=== PATIENT | male | born 1990 ===

== ENCOUNTER 2021-10-24 09:27 | Outpatient (CLI) | payer OTHER ==
--- NOTE | 2021-10-24 14:25 | MRI Report ---
PROCEDURE: Thoracic Spine W/O INDICATIONS: THORACIC BACK PAIN TECHNIQUE: Noncontrast sagittal T1 spine echo and T2 fast spin echo, sagittal STIR, axial T1 and T2 fast spin ec ho through the thoracic spine. COMPARISON: None. FINDINGS: Image quality: Excellent. Alignment and Curvature: There is normal bony alignment. Bone Marrow: Marrow is of normal overall signal. No acute vertebral body compression fractures. Spinal Cord: Visualized spinal cord is normal in size and signal. Paraspinous Soft Tissues: No paravertebral masses. Miscellaneous: On axial images, central canal and foramina appear widely patent at all scanned level s. IMPRESSION: 1. Normal examination. 2. No central stenosis. 3. No neural foraminal narrowing. 4. No neural compression. 5. No vertebral body compression fracture. Reviewed by: Keisha Red MD, PhD on 10/24/2021 2:23 PM PDT Approved by: Keisha Red MD, PhD on 10/24/2021 2:23 PM PDT Station ID: [id number]
== END 2021-10-24 09:28 | disposition home or self-care (01) ==
LOC: DI 09:27
DX: M54.6 Pain in thoracic spine (principal)

== ENCOUNTER 2024-01-08 08:14 | Outpatient (CLI) | payer OTHER ==
--- NOTE | 2024-01-08 19:40 | XRAY Report ---
PROCEDURE: Wrist 3+V RT INDICATIONS: WRIST PX,RT TECHNIQUE: 3 views of the wrist were acquired. COMPARISON: None FINDINGS: Bones: No fractures or dislocations. No suspicious bony lesions. Soft tissues: No suspicious soft tissue calcifications or masses. IMPRESSION: Unremarkable wrist radiographs Reviewed by: Jose Luis Lenz MD on 01/08/2024 6:39 PM AKDT Approved by: Jose Luis Lenz MD on 01/08/2024 6:39 PM AKDT Station ID: [id number]
== END 2024-01-08 08:15 | disposition home or self-care (01) ==
LOC: DI 08:14
PROVIDERS: ATTEND Physician Assistant Surgical
DX: M25.531 Pain in right wrist (principal)